=== PATIENT | female | born 1945 ===

== ENCOUNTER → 2019-02-01 22:44 | Outpatient (ROUT) | payer MEDICARE, SELFPAY ==
[2019-02-01 23:47] LABS: Glucose 86 mg/dL (80-110)
[2019-02-02 01:33] LABS: Free T3, Triiodothyronine Free 4.22 pg/mL (2.77-5.27); Triiodothryronine T3 Uptake 31.7 % (23.5-40.5)
[2019-02-02 01:34] LABS: Hemoglobin A1C% w Est Avg Glu 5.2 % (4.0-6.0)
[2019-02-02 01:46] LABS: Thyroid Stimulating Hormone 0.74 uIU/mL (0.47-4.68)
[2019-02-05 14:53] LABS: Anti Thyroglobulin Antibody < 1 IU/mL (< 2); Thyroid Peroxidase Antibodies 1 IU/mL (< 9)
[2019-02-05 14:58] LABS: Insulin Level Total 3.9 uIU/mL (2.0-19.6)
[2019-02-05 15:43] LABS: Triiodothyronine T3 Total 105 ng/dL (76-181)
== END ==
PROVIDERS: Visit Provider Family Medicine
DX: R73.9 Hyperglycemia, unspecified (principal); E03.9 Hypothyroidism, unspecified; R53.1 Weakness; R53.83 Other fatigue
CPT/HCPCS: 36415; 82947; 83036; 83525; 84439; 84443; 84479; 84480; 84481; 86376; 86800